=== PATIENT | male | born 1960 | race Caucasian/White ===

== ENCOUNTER 2023-01-14 10:07 | Inpatient (IN) | payer MEDICARE, MEDICAID, SELFPAY ==
[2023-01-14] VITALS (39 sets, daily range): BP systolic 164–209; BP diastolic 88–159; PULSE 77–107; RESP 16–36; TEMP 36.4–37; O2SAT 91–98; BMI 25.3
--- NOTE | ~2023-01-14 | CT_ITS ---
EXAMINATION: CTA chest abdomen pelvis DATE: 01/14/2023 11:17 INDICATION: Hypertension, chest and abdominal pain TECHNIQUE: Computed tomographic angiography (CTA) of the chest, abdomen, and pelvis was performed wit h 100 mL Omnipque-350 intravenous contrast. Maximum intensity projection 3D-reconstructions of the ao rta and other arteries were constructed by the technologist on a separate workstation. The dose-lengt h product (DLP) was 1173.00 mGy-cm. Automated exposure control and iterative reconstruction technique were employed. COMPARISON: None. FINDINGS: CHEST CTA: No aneurysm or dissection of the thoracic aorta. There is calcified coronary artery atherosclerosis. Changes of coronary artery bypass grafting are noted. There are small pleural effusions, left greater than right. No pneumothorax is identified. Cardiomegaly is noted. There is atelectasis involving muc h of the left lower lobe. Atelectasis is also noted in the lingula and right middle and lower lobes. A large bore dialysis catheter ends with its tip in the right atrium. There are no pathologically enl arged thoracic lymph nodes. There are multiple areas of mild anterior wedging in the thoracic spine. There is severe thoracic spondylosis. ABDOMEN AND PELVIS CTA: There is no aneurysm of the abdominal aorta. There appears to be a short segment dissection of the in frarenal abdominal aorta with fenestration resulting in opacification of the true and false lumens (i mage [id number]). The celiac axis, superior mesenteric artery, and inferior mesenteric artery are normal at their origins. There is a short segment of moderate stenosis in the common hepatic artery. There are single renal arteries. Endoluminal stents are present in the bilateral proximal common iliac arteries . There is occlusion of the right superficial femoral artery at its origin. There is calcified athero sclerosis and severe stenosis of the left superficial femoral artery at its origin and visualized pro ximal portion. There is calcified atherosclerosis with areas of severe stenosis in the bilateral inte rnal iliac arteries. There is a large volume of abdominal ascites. The liver, spleen, pancreas, and adrenal glands are nor mal. Stone is present in the nondistended gallbladder. No pathologically enlarged abdominal or pelvic lymph nodes are identified. No free intraperitoneal gas or evidence of bowel obstruction. There is a n age-indeterminate compression fracture of L1. IMPRESSION: 1. Possible short segment dissection of the infrarenal abdominal aorta with fenestration resulting in opacification of the true and false lumens. No aneurysm. 2. No acute findings of the thoracic aorta. 3. Large volume of ascites. 4. Areas of significant atherosclerosis and hemodynamically significant stenosis as detailed above. 5. Cardiomegaly. 6. Small pleural effusions with atelectasis of much of the left lower lobe. Reviewed, dictated and finalized at location B. IMPRESSION: 1. Possible short segment dissection of the infrarenal abdominal aorta with fen estration resulting in opacification of the true and false lumens. No aneurysm. 2. No acute findings of the thoracic aorta. 3. Large volume of ascites. 4. Areas of significant atherosclerosis and hemodynamically significant stenosi s as detailed above. 5. Cardiomegaly. 6. Small pleural effusions with atelectasis of much of the left lower lobe.
--- NOTE | 2023-01-14 10:21 | ECG_ITS ---
Measurements Intervals [place] Rate: 97 P: 67 SC: 152 QRS: -23 QRSD: 98 T: 171 QT: 371 QTc: 473 Interpretive Statements SINUS RHYTHM MISSING LEAD V4 INFERIOR INFARCT, AGE INDETERMINATE ANTERIOR INFARCT, AGE INDETERMINATE ST-T WAVE ABNORMALITY IN HIGH LATERAL LEADS- CONSIDER ISCHEMIA BASELINE WANDER- V1 ABNORMAL ECG NO PREVIOUS ECG AVAILABLE FOR COMPARISON Electronically Signed On 01-14-2023 14:15:27 CDT by Jese Morin D.O.
--- NOTE | 2023-01-14 10:27 | ED.ABDPAIN ---
HPI - Abdominal Pain General Chief Complaint: Abdominal Pain Stated Complaint: abd pain Time Seen by Provider: 01/14/23 10:08 History of Present Illness HPI narrative: 62-year-old male presented the ED for evaluation of 3 weeks of abdominal pain. Patient does report some associated nausea and vomiting, patient denies any change in bowel habits. Patient does have history of CABG and is on dialysis on Wednesdays and Fridays. Patient missed his dialysis the last 2 times and presented to the ED complaining of abdominal pain Related Data Home Medications Medication Instructions Recorded Confirmed acetaminophen 325 mg tablet 650 mg PO Q6H PRN Pain (Scale 01/14/23 01/14/23 (Tylenol) Score 1-3) albuterol sulfate 90 mcg/actuation 2 puff inhalation QID PRN 01/14/23 01/14/23 aerosol inhaler Shortness Of Breath alprazolam 1 mg tablet 1 mg PO DAILY 01/14/23 01/14/23 amlodipine 10 mg tablet 10 mg PO DAILY 01/14/23 01/14/23 aspirin 325 mg tablet 325 mg PO DAILY 01/14/23 01/14/23 atorvastatin 80 mg tablet 80 mg PO HS 01/14/23 01/14/23 buspirone 10 mg tablet 10 mg PO TID 01/14/23 01/14/23 calcium acetate(phosphat bind) 667 1,334 mg PO TIDWM 01/14/23 01/14/23 mg tablet carvedilol 12.5 mg tablet 37.5 mg PO BID 01/14/23 01/14/23 fluoxetine 10 mg capsule 10 mg PO DAILY 01/14/23 01/14/23 furosemide 40 mg tablet 40 mg PO DAILY 01/14/23 01/14/23 gabapentin 100 mg capsule 100 mg PO TID 01/14/23 01/14/23 loperamide 2 mg tablet 2 mg PO Q6H 01/14/23 01/14/23 mirtazapine 15 mg tablet 15 mg PO HS 01/14/23 01/14/23 tamsulosin 0.4 mg capsule (Flomax) 0.4 mg PO DAILY 01/14/23 01/14/23 tiotropium bromide 2.5 2 puff inhalation DAILY PRN 01/14/23 01/14/23 mcg/actuation mist for inhalation Shortness Of Breath (Spiriva Respimat) tramadol 50 mg tablet 50 mg PO TID PRN Pain (Scale Score 01/14/23 01/14/23 4-6) Allergies Allergy/AdvReac Type Severity Reaction Status Date / Time codeine AdvReac Unknown Verified 01/14/23 13:52 morphine AdvReac Unknown Verified 01/14/23 13:52 Review of Systems Review of Systems: All systems reviewed & are unremarkable except as noted in HPI and below PMFSH Past Medical History Medical History (Updated 01/14/23 @ 16:38 by Rashaun Hoyos MD) BPH (benign prostatic hyperplasia) CAD (coronary artery disease) CHF (congestive heart failure) COPD (chronic obstructive pulmonary disease) Diabetes End stage renal disease on dialysis Generalized anxiety disorder Hypertension PVD (peripheral vascular disease) Surgical History Surgical History (Updated 01/14/23 @ 16:33 by Rashaun Hoyos MD) Status post below knee amputation of right lower extremity Social History Social History Smoking packs per day: 1 Smoking cigarettes per day: 20.0 Smoking status: Current every day smoker Tobacco type: cigarettes Exam Narrative: APPEARANCE: Well appearing, no pain, no distress, well-nourished. HEAD: normocephalic, atraumatic. EYES: PERRLA/EOMI, conjunctivae clear. NOSE: Normal no drainage EARS:TMS clear with good light reflex. THROAT: Pharynx clear, no exudate. NECK: Supple. No adenopathy, no masses. RESPIRATORY: Airway patent, respirations nonlabored. Clear to auscultation bilaterally, no rales, rhonchi, wheezing. CARDIOVASCULAR: Regular rate and rhythm without murmurs rubs or gallops. ABDOMINAL: Soft, nontender, distended, normal bowel sounds MUSCULOSKELETAL: Moves all extremities. Strength/ROM intact, No edema, No calf tenderness. NEURO: Alert. Cranial nerves II through XII intact. Grossly intact SKIN: Warm, dry. Normal Color Course Course Emergency Course: 62-year-old male presented the emergency department for evaluation of abdominal pain. Patient was afebrile with no leukocytosis and hemoglobin of 13.5. Patient missed his dialysis and does have a potassium of 5.7. Patient was treated with Lokelma and bicarb. CTA was ordered to ev
[2023-01-14 10:29] LABS: Basophils Percent Auto 0.5 % (0.2-1.2); Eosinophils Percent Auto 0.5 % (0-4.4); Hematocrit 42.6 % (42.0-52.0); Hemoglobin 13.5 g/dL (14.0-18.0); Immature Granulocyte Absolute 0.05 K/mm3 (0.00-0.031); Immature Granulocyte Percent A 0.6 % (0-0.5); Lymphocytes Absolute Auto 0.78 K/mm3 (0.9-3.2); Lymphocytes Percent Auto 10.1 % (18.3-44.2); Mean Corpuscular HGB Conc 31.7 g/dl (32-36); Mean Corpuscular Hemoglobin 28.1 pg (26-34); Mean Corpuscular Volume 88.6 fl (80-100); Mean Platelet Volume 11.1 fl (7.4-10.4); Monocytes Absolute Auto 0.5 K/mm3 (0.1-0.6); Monocytes Percent Auto 6.2 % (2.6-8.5); Neutrophils Absolute Auto 6.3 K/mm3 (1.3-6.7); Neutrophils Percent Auto 82.1 % (45.5-73.1); Platelet Count Result 206 k/mm3 (150-375); Red Blood Count 4.81 M/mm3 (4.6-6.20); Red Cell Distribution Width 16.3 % (11.5-14.5); White Blood Count 7.7 K/mm3 (4.5-10.0)
[2023-01-14 10:38] LABS: Alanine Aminotransferase 38 U/L (6-50); Albumin Level 3.6 g/dL (3.5-5.1); Alkaline Phosphatase 84 U/L (38-126); Anion Gap 16 mmol/L (8-16); Aspartate Amino Transferase 57 U/L (17-59); Bilirubin,Total 0.9 mg/dL (0.2-1.3); Blood Urea Nitrogen 66 mg/dL (9-20); Calcium 8.9 mg/dL (8.4-10.2); Carbon Dioxide 27 mmol/L (22-30); Chloride 94 mmol/L (98-107); Estimated CRCL calculation 8 ml/min; Estimated Glomerular Filt Rate 6; Glucose 232 mg/dL (65-110); Lipase 21 U/L (23-300); Potassium 5.7 mmol/L (3.4-5.0); Sodium 137 mmol/L (137-145)
--- NOTE | 2023-01-14 11:16 | PC.NURSE ---
Catheterization attempted on pt by this RN. Attempt was unsuccessful notified
[2023-01-14] MEDS: hydrALAZINE HCL 20 MG/ML VIAL 10 MG IV PUSH ×2 (11:25→12:43)
[2023-01-14] MEDS: ONDANSETRON INJ 4 MG/2 ML VIAL IV PUSH (11:32)
[2023-01-14] MEDS: SODIUM BICARBONATE 8.4% 50 MEQ/50 ML SYRINGE IV PUSH (12:21)
[2023-01-14] MEDS: SODIUM ZIRCONIUM CYCLOSILICATE 10 GM POWD.PACK PO (12:22)
[2023-01-14] MEDS: niCARdipine 20 MG/200 ML 20 MG/200 ML BAG 50 MG IV CONT (12:22)
[2023-01-14] MEDS: METOPROLOL TARTRATE INJ 5 MG/5 ML VIAL IV PUSH (13:12)
--- NOTE | 2023-01-14 13:42 | ADMGEN ---
This patient, Ottoniel Chery, was admitted to Intensive Care Unit-9 at 1342. Patient/family oriented to hospital policies and general routines including ID bracelet, bed and alarms, visiting hours, pain management, procedures, bathroom and other care routines, personal items, smoking policy, room service/diet, and visiting hours. Information on how to activate the Rapid Response Team has been discussed. Patient/Family are encouraged to report perceived risks to care and to ask questions if they do not understand what they are told or what they should do.
[2023-01-14 14:00] LABS: Hepatitis B Surface Antigen Negative (Negative)
--- NOTE | 2023-01-14 14:05 | WPDCNINT ---
Assessment and Plan Assessment and plan (1) Hypertensive urgency: Code(s): I16.0 - Hypertensive urgency Status: Acute Assessment and Plan: Patient presented with hypertensive urgency with systolic blood pressures greater than 200s, likely related to missed hemodialysis x2. -patient was treated with hydralazine and metoprolol in the ER with improvement in his blood pressures -patient being dialyzed now nephrology -according the turn down man patient does have chronically elevated blood pressures -will restart him on his home medications - (2) Acute hyperkalemia: Code(s): E87.5 - Hyperkalemia Status: Acute Assessment and Plan: Likely related to missed dialysis, patient has been given Lokelma and bicarb in the ER -currently being dialyzed, will monitor BMP after dialysis (3) Dissection of abdominal aorta: Code(s): I71.02 - Dissection of abdominal aorta Status: Acute Assessment and Plan: Patient presenting abdominal pain, nausea and vomiting 01/14: CT scan of chest, abdomen and pelvis: Possible short segment dissection of the infrarenal abdominal aorta with fenestration resulting in opacification of the true and false lumens. No aneurysm.. No acute findings of the thoracic aorta.. Large volume of ascites. Areas of significant atherosclerosis and hemodynamically significant stenosis as detailed above. Cardiomegaly. Small pleural effusions with atelectasis of much of the left lower lobe. -The ER physician has discussed this case with Dr. Whitehead from [facility], patient has been accepted and will be transferred when bed is available. -recommended having him dialyzed over here until a bed is available. Will maintain blood pressures, 140s (4) End stage renal disease on dialysis: Code(s): N18.6 - End stage renal disease; Z99.2 - Dependence on renal dialysis Status: Acute Assessment and Plan: Patient has a history of end-stage renal disease on hemodialysis -currently uremic as he has missed dialysis x2 -hyperkalemia has been treated -nephrology is following (5) Hypertension: Code(s): I10 - Essential (primary) hypertension Status: Acute Assessment and Plan: History of essential hypertension -patient did not know if he took any medications at the detention for his blood pressures as he was having nausea and vomiting -will restart home meds (6) Abdominal pain: Code(s): R10.9 - Unspecified abdominal pain Status: Acute Assessment and Plan: Multifactorial, likely related to ascites, uremia, possible dissection -continue to treat underlying causes -patient been having nausea and vomiting -continues Zofran (7) COPD (chronic obstructive pulmonary disease): Code(s): J44.9 - Chronic obstructive pulmonary disease, unspecified Status: Acute Assessment and Plan: Patient with history of COPD -order bronchodilators (8) Generalized anxiety disorder: Code(s): F41.1 - Generalized anxiety disorder Status: Acute Assessment and Plan: Patient has a history of general anxiety disorder, he does take Xanax at the detention -will check does and or reorder Xanax while in the ICU here (9) Diabetes: Qualifiers: Diabetes mellitus type: type 2 Diabetes mellitus complication status: with circulatory complication Code(s): E11.9 - Type 2 diabetes mellitus without complications Status: Acute Assessment and Plan: History of diabetes, -continue sliding scale and Accu-Chek (10) Tobacco use: Code(s): Z72.0 - Tobacco use Status: Acute Assessment and Plan: Patient has been smoking for a very long time, smokes 10 cigarettes per day, denies any illicit drug use or alcohol use. -counseled patient on cessation of smoking to which he is receptive (11) Ascites: Code(s): R18.8 - Other ascites Status: Acute Assessment and Plan: Patient is a
--- NOTE | 2023-01-14 14:14 | ECG_ITS ---
Measurements Intervals [place] Rate: 85 P: 21 FL: 123 QRS: -17 QRSD: 94 T: 179 QT: 408 QTc: 486 Interpretive Statements SINUS RHYTHM ANTERIOR INFARCT, AGE INDETERMINATE INFERIOR INFARCT, AGE INDETERMINATE ST-T WAVE ABNORMALITY IN HIGH LATERAL LEADS- CONSIDER ISCHEMIA BASELINE ARTIFACT- I, II, AVR, AVF ABNORMAL ECG COMPARED TO ECG 01/14/2023 10:32:02 NO SIGNIFICANT CHANGES Electronically Signed On 01-14-2023 15:40:45 CDT by Jese Morin D.O.
[2023-01-14 14:18] LABS: Hepatitis B Surface Anti Res Negative
--- NOTE | 2023-01-14 15:30 | PM.CNNEP ---
Assessment and Plan Assessment and plan (1) End stage renal disease: Code(s): N18.6 - End stage renal disease Status: Chronic Assessment and Plan: HD today consider HD tomorrow as well (since he has missed 2 treatments this week) follow electrolytes, volume status, and clearacne (2) Hyperkalemia: Code(s): E87.5 - Hyperkalemia Status: Acute Assessment and Plan: due to missed dialysis treatment received lokelma and bicarb in the ER dialyis today should fully correct (3) Hypertensive urgency: Code(s): I16.0 - Hypertensive urgency Status: Acute Assessment and Plan: as noted on presentation to ER likely due to a combination of missed dialysis treatment along with questionable compliance with home BP medications s/p IV hydralazone and metoprolol in ER with some improvement resume home medications suspect may need further PRN medications dialysis today (4) Dissection of abdominal aorta: Code(s): I71.02 - Dissection of abdominal aorta Status: Acute Assessment and Plan: presented with abdominal pain along with N/V as noted by admission CTA of abdomen: 01/14: CT scan of chest, abdomen and pelvis: possible short segment dissection of the infrarenal abdominal aorta with fenestration resulting in opacification of the true and false lumens. No aneurysm.. No acute findings of the thoracic aorta.. Large volume of ascites. Areas of significant atherosclerosis and hemodynamically significant stenosis as detailed above. Cardiomegaly. Small pleural effusions with atelectasis of much of the left lower lobe. ER physician has discussed this case with Dr. Whitehead from [facility], patient has been accepted and will be transferred when bed is available. (5) Abdominal pain: Code(s): R10.9 - Unspecified abdominal pain Status: Acute Assessment and Plan: probably due to a combo of ascites, uremia, possible dissection supportive care for now (6) Diabetes: Qualifiers: Diabetes mellitus type: type 2 Diabetes mellitus complication status: with circulatory complication Code(s): E11.9 - Type 2 diabetes mellitus without complications Status: Acute Assessment and Plan: follow accu-cheks glycemic control per hospitalists/server administrator I will continue to follow the patient with you while he remains hospitalized and make further recommendations as needed. Thank you for allowing me to participate in care of this patient. History of Present Illness Reason for Consult Consult date: 01/14/23 Reason for consult: end stage renal disease Chief Complaint Chief complaint: Infrarenal Aortic Dissection/Hypertension/Hyperkal History of Present Illness Narrative: The patient is a 62-year-old male with a past medical history as outlined below who presented to [facility] Emergency room today with complaints of abdominal pain in association with nausea and vomiting. Apparently, for the last 3 - 4 days the patient has been having abdominal pain with associated symptoms of nausea and vomiting. Due to these symptoms, he missed 2 of his dialysis sessions this week as he felt so poorly. No reported fevers, chills, diarrhea, chest pain, worsening shortness of breath. He apparently reports he always has some mild baseline shortness of breath secondary to his known diagnosis of COPD. As his symptoms of abdominal pain and nausea /vomiting continued to progress, his nursing facility sent him to the emergency room for further assessment. Workup and evaluation emergency room demonstrated the patient to be quite hypertensive with systolic BP is greater than 200. Routine blood test demonstrated labs consistent with his known history of end-stage renal disease with a normal white blood cell count and hemoglobin as well as platelet count. His liver function tests were within normal limits and his lipase was n
--- NOTE | 2023-01-14 15:30 | P.CONNP_ITS ---
Assessment and Plan Assessment and plan (1) End stage renal disease: Code(s): N18.6 - End stage renal disease Status: Chronic Assessment and Plan: * HD today * consider HD tomorrow as well (since he has missed 2 treatments this week) * follow electrolytes, volume status, and clearacne (2) Hyperkalemia: Code(s): E87.5 - Hyperkalemia Status: Acute Assessment and Plan: * due to missed dialysis treatment * received lokelma and bicarb in the ER * dialyis today should fully correct (3) Hypertensive urgency: Code(s): I16.0 - Hypertensive urgency Status: Acute Assessment and Plan: * as noted on presentation to ER * likely due to a combination of missed dialysis treatment along with questionable compliance with home BP medications * s/p IV hydralazone and metoprolol in ER with some improvement * resume home medications * suspect may need further PRN medications * dialysis today (4) Dissection of abdominal aorta: Code(s): I71.02 - Dissection of abdominal aorta Status: Acute Assessment and Plan: * presented with abdominal pain along with N/V * as noted by admission CTA of abdomen: * 01/14: CT scan of chest, abdomen and pelvis: possible short segment dissection of the infrarenal abdominal aorta with fenestration resulting in opacification of the true and false lumens. No aneurysm.. No acute findings of the thoracic aorta.. Large volume of ascites. Areas of significant atherosclerosis and hemodynamically significant stenosis as detailed above. Cardiomegaly. Small pleural effusions with atelectasis of much of the left lower lobe. * ER physician has discussed this case with Dr. Whitehead from [facility], patient has been accepted and will be transferred when bed is available. (5) Abdominal pain: Code(s): R10.9 - Unspecified abdominal pain Status: Acute Assessment and Plan: * probably due to a combo of ascites, uremia, possible dissection * supportive care for now (6) Diabetes: Qualifiers: Diabetes mellitus type: type 2 Diabetes mellitus complication status: with circulatory complication Code(s): E11.9 - Type 2 diabetes mellitus without complications Status: Acute Assessment and Plan: * follow accu-cheks * glycemic control per hospitalists/optical glass silverer I will continue to follow the patient with you while he remains hospitalized and make further recommendations as needed. Thank you for allowing me to participate in care of this patient. History of Present Illness Reason for Consult Consult date: 01/14/23 Reason for consult: end stage renal disease Chief Complaint Chief complaint: Infrarenal Aortic Dissection/Hypertension/Hyperkal History of Present Illness Narrative: The patient is a 62-year-old male with a past medical history as outlined below who presented to [facility] Emergency room today with complaints of abdominal pain in association with nausea and vomiting. Apparently, for the last 3 - 4 days the patient has been having abdominal pain with associated symptoms of nausea and vomiting. Due to these symptoms, he missed 2 of his dialysis sessions this week as he felt so poorly. No reported fevers, chills, diarrhea, chest pain, worsening shortness of breath. He nareshen basil reports he always has some mild baseline shortness of breath secondary to his known diagnosis of COPD. As his symptoms of abdominal pain and nausea /vomiting continued to progress, his nursing facility sent him to
[2023-01-14] MEDS: ALPRAZolam (*CRX) 0.5 MG TABLET PO (15:33)
--- NOTE | 2023-01-14 15:55 | PM.IMHP ---
H&P: HPI History of Present Illness Date/Time: 01/14/23 15:55 Chief Complaint: Abdominal pain Narrative: Patient is 62 years old male with history of multiple medical problems including hypertension chronic kidney disease on dialysis was admitted through the emergency room with complaints of having generalized abdominal pain going on for the last 3 weeks. Patient does report some associated nausea and vomiting, patient denies any change in bowel habits.? Patient does have history of CABG and is on dialysis on Wednesdays and Fridays.? Patient missed his dialysis the last 2 times. Patient denies any chest pain. However patient complained of mild shortness of breath. Workup in the ER showed patient has possible abdominal aortic dissection. Chest x-ray showed fluid overload. Patient was admitted in ICU for dialysis and later on transferred to tertiary care of the patient treatment. Review of Systems Review of Systems: All systems reviewed & are unremarkable except as noted in HPI and below PMFSH Social History Social History Smoking packs per day: 1 Smoking cigarettes per day: 20.0 Smoking status: Current every day smoker Tobacco type: cigarettes Meds Home Medications and Allergies Home Medications Medication Instructions Recorded Confirmed Type acetaminophen 325 mg tablet 650 mg PO Q6H PRN Pain (Scale 01/14/23 01/14/23 History (Tylenol) Score 1-3) albuterol sulfate 90 mcg/actuation 2 puff inhalation QID PRN 01/14/23 01/14/23 History aerosol inhaler Shortness Of Breath alprazolam 1 mg tablet 1 mg PO DAILY 01/14/23 01/14/23 History amlodipine 10 mg tablet 10 mg PO DAILY 01/14/23 01/14/23 History aspirin 325 mg tablet 325 mg PO DAILY 01/14/23 01/14/23 History atorvastatin 80 mg tablet 80 mg PO HS 01/14/23 01/14/23 History buspirone 10 mg tablet 10 mg PO TID 01/14/23 01/14/23 History calcium acetate(phosphat bind) 667 1,334 mg PO TIDWM 01/14/23 01/14/23 History mg tablet carvedilol 12.5 mg tablet 37.5 mg PO BID 01/14/23 01/14/23 History fluoxetine 10 mg capsule 10 mg PO DAILY 01/14/23 01/14/23 History furosemide 40 mg tablet 40 mg PO DAILY 01/14/23 01/14/23 History gabapentin 100 mg capsule 100 mg PO TID 01/14/23 01/14/23 History loperamide 2 mg tablet 2 mg PO Q6H 01/14/23 01/14/23 History mirtazapine 15 mg tablet 15 mg PO HS 01/14/23 01/14/23 History tamsulosin 0.4 mg capsule (Flomax) 0.4 mg PO DAILY 01/14/23 01/14/23 History tiotropium bromide 2.5 2 puff inhalation DAILY PRN 01/14/23 01/14/23 History mcg/actuation mist for inhalation Shortness Of Breath (Spiriva Respimat) tramadol 50 mg tablet 50 mg PO TID PRN Pain (Scale Score 01/14/23 01/14/23 History 4-6) Allergies Allergy/AdvReac Type Severity Reaction Status Date / Time codeine AdvReac Unknown Verified 01/14/23 13:52 morphine AdvReac Unknown Verified 01/14/23 13:52 Vital Signs Vital Signs - 24 hr 01/14/23 10:07 01/14/23 10:14 01/14/23 10:15 Temperature 36.7 C Pulse Rate 99 98 98 Respiratory Rate 20 16 25 H Blood Pressure 207/118 H Pulse Oximetry 96 96 Oxygen Delivery Room Air 01/14/23 10:16 01/14/23 10:30 01/14/23 10:31 Temperature Pulse Rate 97 97 97 Respiratory Rate 29 H 35 H 30 H Blood Pressure 209/119 H 202/124 H Pulse Oximetry 97 Oxygen Delivery 01/14/23 10:45 01/14/23 11:00 01/14/23 11:25 Temperature Pulse Rate 99 95 107 H Respiratory Rate 29 H 31 H 20 Blood Pressure Pulse Oximetry Oxygen Delivery 01/14/23 11:26 01/14/23 11:30 01/14/23 11:31 Temperature Pulse Rate 105 H 101 H 99 Respiratory Rate 36 H 24 H 30 H Blood Pressure 200/136 H 194/130 H Pulse Oximetry Oxygen Delivery 01/14/23 12:22 01/14/23 12:41 01/14/23 12:50 Temperature Pulse Rate 94 92 98 Respiratory Rate 20 Blood Pressure 190/118 H 191/113 H 168/89 H Pulse Oximetry 96 Oxygen Delivery 01/14/23 13:12 01/14/23 13:3
--- NOTE | 2023-01-14 16:02 | PM.DS ---
DS: Admitting Diagnosis Discharge Date 01/15/2023 Admitting Diagnosis Hypertensive urgency Missed dialysis History of hypertension Abdominal aortic aneurysm dissection DS: Discharge Diagnosis Discharge Diagnosis (1) Hypertensive urgency: Code(s): I16.0 - Hypertensive urgency Status: Acute (2) Dissection of abdominal aorta: Code(s): I71.02 - Dissection of abdominal aorta Status: Acute (3) Acute hyperkalemia: Code(s): E87.5 - Hyperkalemia Status: Acute (4) Diabetes: Qualifiers: Diabetes mellitus complication status: with circulatory complication Diabetes mellitus type: type 2 Code(s): E11.9 - Type 2 diabetes mellitus without complications Status: Acute (5) Generalized anxiety disorder: Code(s): F41.1 - Generalized anxiety disorder Status: Acute (6) COPD (chronic obstructive pulmonary disease): Code(s): J44.9 - Chronic obstructive pulmonary disease, unspecified Status: Acute DS: Summary Hospital Course Hospital Course: Patient was admitted with missed dialysis and hypertensive emergency. Patient also have abdominal aortic dissection. Patient got dialysis in ICU and his blood pressure was controlled. Patient was transferred to tertiary [facility] for the Aortic aneurysm dissection treatment. Status at Discharge Cognitive/behavioral status at discharge: Stable. Time Spent with Patient Time attestation: Total time spent providing and/or coordinating discharge services: DS: Data Data Completed and Pending Labs on day of discharge: Labs from last 24 hours 01/14/23 10:20 WBC 7.7 RBC 4.81 Hgb 13.5 L Hct 42.6 MCV 88.6 MCH 28.1 MCHC 31.7 L RDW 16.3 H Plt Count 206 MPV 11.1 H Immature Gran % (Auto) 0.6 H Neut % (Auto) 82.1 H Lymph % (Auto) 10.1 L [place] % (Auto) 6.2 Eos % (Auto) 0.5 Baso % (Auto) 0.5 Lymph # (Auto) 0.78 L [place] # (Auto) 0.5 Eos # (Auto) 0.0 Baso # (Auto) 0.0 Abs Immat Gran (auto) 0.05 H Absolute Neuts (auto) 6.3 Absolute Nucleated RBC 0.0 Nucleated RBC % 0.0 Sodium 137 Potassium 5.7 H Chloride 94 L Carbon Dioxide 27 Anion Gap 16 BUN 66 H Creatinine 9.10 H Estim Creat Clear Calc 8 Estimated GFR 6 L Glucose 232 H Calcium 8.9 Total Bilirubin 0.9 AST 57 ALT 38 Alkaline Phosphatase 84 Total Protein 7.0 Albumin 3.6 Lipase 21 L Hep Bs Antigen Negative Hep Bs Antibody Negative Discharge Plan Discharge Attending physician on discharge: Arnulfo Pineda Consulting providers: Rashaun Hoyos Zohair H. Discharging Clinician: Arnulfo Pineda Patient Disposition: Acute Care Hospital Discharge Medications: Discontinued furosemide 40 mg tablet 40 mg PO DAILY atorvastatin 80 mg tablet 80 mg PO HS acetaminophen [Tylenol] 325 mg Tablet 650 mg PO Q6H PRN (Reason: Pain (Scale Score 1-3)) carvedilol 12.5 mg tablet 37.5 mg PO BID aspirin 325 mg Tablet 325 mg PO DAILY alprazolam 1 mg tablet 1 mg PO DAILY loperamide 2 mg Tablet 2 mg PO Q6H calcium acetate(phosphat bind) 667 mg tablet 1,334 mg PO TIDWM tramadol 50 mg tablet 50 mg PO TID PRN (Reason: Pain (Scale Score 4-6)) tamsulosin [Flomax] 0.4 mg Capsule 0.4 mg PO DAILY amlodipine 10 mg tablet 10 mg PO DAILY buspirone 10 mg Tablet 10 mg PO TID fluoxetine 10 mg Capsule 10 mg PO DAILY mirtazapine 15 mg tablet 15 mg PO HS gabapentin 100 mg capsule 100 mg PO TID albuterol sulfate 90 mcg/actuation Hfa Aerosol Inhaler 2 puff INHALATION QID PRN (Reason: Shortness Of Breath) Spiriva Respimat 2.5 mcg/actuation Mist 2 puff INHALATION DAILY PRN (Reason: Shortness Of Breath) Date of admission: 01/14/23 13:00 Primary Care Provider: PHYSICIAN NOT ON STAFF,NONSTAFF Admitting Provider: Donald Myers Attending physician on admission: Donald Myers [place]
[2023-01-14] MEDS: hydrALAZINE HCL 20 MG/ML VIAL IV PUSH (18:53)
[2023-01-14] MEDS: ATORVASTATIN 40 MG TABLET 80 MG PO (20:10)
[2023-01-14] MEDS: MIRTAZAPINE 15 MG TABLET PO (20:10)
[2023-01-14] MEDS: carvediloL 12.5 MG TABLET 37.5 MG PO (20:10)
--- NOTE | 2023-01-14 20:47 | PC.NURSE ---
[facility] transport delayed to 2200. Spoke with Dr Ram; due to patients need for transfer , ambulance with lights and sirens was authorized. Spoke with Shana and lights and sir has been noted and patient should be next transport.
--- NOTE | 2023-01-16 12:05 | PM.TDS ---
Transfer Discharge Sum: Prov Provider Date of admission: 01/14/23 13:00 Primary care physician: PHYSICIAN NOT ON STAFF Admitting clinician: Donald Myers MD Consults: 01/14/23 Consult to Physician Routine Comment: Consulting Provider: Rashaun Hoyos Reason for consultation: Missed dialysis Has provider been notified: Yes 01/14/23 13:01 Consult to Physician Routine Comment: Consulting Provider: Josué Gordillo Reason for consultation: Abdominal aortic dissection, hypertension, hyperkalemia Has provider been notified: Yes DS: Admitting Diagnosis Discharge Date 01/14/23 Admitting Diagnosis Hypertensive urgency Missed dialysis History of hypertension Abdominal aortic aneurysm dissection DS: Discharge Diagnosis Discharge Diagnosis Plan Hypertensive urgency Missed dialysis History of hypertension Abdominal aortic aneurysm dissection Transfer Discharge Sum: Med Medications Active and Home Medications: Home Medications acetaminophen 325 mg tablet (Tylenol) 650 mg PO Q6H PRN Pain (Scale Score 1-3) 01/14/23 [History Confirmed 01/14/23] albuterol sulfate 90 mcg/actuation aerosol inhaler 2 puff inhalation QID PRN Shortness Of Breath 01/14/23 [History Confirmed 01/14/23] alprazolam 1 mg tablet 1 mg PO DAILY 01/14/23 [History Confirmed 01/14/23] amlodipine 10 mg tablet 10 mg PO DAILY 01/14/23 [History Confirmed 01/14/23] aspirin 325 mg tablet 325 mg PO DAILY 01/14/23 [History Confirmed 01/14/23] atorvastatin 80 mg tablet 80 mg PO HS 01/14/23 [History Confirmed 01/14/23] buspirone 10 mg tablet 10 mg PO TID 01/14/23 [History Confirmed 01/14/23] calcium acetate(phosphat bind) 667 mg tablet 1,334 mg PO TIDWM 01/14/23 [History Confirmed 01/14/23] carvedilol 12.5 mg tablet 37.5 mg PO BID 01/14/23 [History Confirmed 01/14/23] fluoxetine 10 mg capsule 10 mg PO DAILY 01/14/23 [History Confirmed 01/14/23] furosemide 40 mg tablet 40 mg PO DAILY 01/14/23 [History Confirmed 01/14/23] gabapentin 100 mg capsule 100 mg PO TID 01/14/23 [History Confirmed 01/14/23] loperamide 2 mg tablet 2 mg PO Q6H 01/14/23 [History Confirmed 01/14/23] mirtazapine 15 mg tablet 15 mg PO HS 01/14/23 [History Confirmed 01/14/23] tamsulosin 0.4 mg capsule (Flomax) 0.4 mg PO DAILY 01/14/23 [History Confirmed 01/14/23] tiotropium bromide 2.5 mcg/actuation mist for inhalation (Spiriva Respimat) 2 puff inhalation DAILY PRN Shortness Of Breath 01/14/23 [History Confirmed 01/14/23] tramadol 50 mg tablet 50 mg PO TID PRN Pain (Scale Score 4-6) 01/14/23 [History Confirmed 01/14/23] Transfer Discharge Sum: Hosp Hospital Course Hospital course: Ottoniel Chery is a 62 year old male was admitted with sob and abdominal pain. He has missed his dialysis. also was found to have abdominal aortic dissection. Patient was dialyzed, stabilized and then transferred to tertiary care hospital in stable condition. Time Spent with Patient Time attestation: Total time spent providing and/or coordinating transfer services:
== END 2023-01-14 21:50 | disposition short-term general hospital (02) | DRG 299 ==
LOC: ANHED 13:06 → ANHICU 01-17 15:50
PROVIDERS: Internal Medicine Nephrology; Admitting Provider Internal Medicine; Emergency Provider Emergency Medicine; Visit Provider Internal Medicine
DX: I71.02 Dissection of abdominal aorta (principal); N18.6 End stage renal disease; I13.2 Hypertensive heart and chronic kidney disease with heart failure and with stage 5 chronic kidney disease, or end stage renal disease; I50.9 Heart failure, unspecified; I16.0 Hypertensive urgency; I25.10 Atherosclerotic heart disease of native coronary artery without angina pectoris; E87.5 Hyperkalemia; E11.22 Type 2 diabetes mellitus with diabetic chronic kidney disease; E11.51 Type 2 diabetes mellitus with diabetic peripheral angiopathy without gangrene; J44.9 Chronic obstructive pulmonary disease, unspecified; N40.0 Benign prostatic hyperplasia without lower urinary tract symptoms; F17.210 Nicotine dependence, cigarettes, uncomplicated; F41.1 Generalized anxiety disorder; Z99.2 Dependence on renal dialysis; Z95.1 Presence of aortocoronary bypass graft; Z79.82 Long term (current) use of aspirin; Z89.511 Acquired absence of right leg below knee; Z91.158 Patient's noncompliance with renal dialysis for other reason
CPT/HCPCS: 36415; 71275; 74174; 80053; 83690; 85025; 86706; 87340; 93005; 96365; 96375; 96376; 99285; A9270; G0257; J0360; J1644; J2405; J7030; Q9967